=== PATIENT | male | born 1945 | race Caucasian/White ===

== ENCOUNTER 2017-12-24 14:41 | Emergency (ER) | payer MEDICARE ==
[2017-12-24 15:32] VITALS: BP 142/80
[2017-12-24] MEDS ORDERED: Ciprofloxacin TAB* 250 MG PO ONE (15:56)
--- NOTE | 2017-12-24 16:06 | UC ---
Complaint Male HPI - HPI Summary HPI Summary: 72 yo male with dysuria/urgency and frequency started hours ago (today) no f/c has had some gross hematuria hx BPH no back or abd pain no hx UTI no hx kidney stones - History of Current Complaint Chief Complaint: UCGU Stated Complaint: BLOOD IN URINE Time Seen by Provider: 12/24/17 15:42 Hx Obtained From: Patient Onset/Duration: Gradual Onset, Lasting Hours Severity Initially: Mild Severity Currently: None Pain Intensity: 0 Pain Scale Used: 0-10 Numeric Location: Penis Character: Burning Aggravating Factor(s): Voiding Alleviating Factor(s): Nothing Associated Signs And Symptoms: Positive: Hematuria, Dysuria - terminal. Negative: Diaphoresis, Back Pain, Fever, Blood in Stool, Rectal Pain, Appetite, Nausea, Vomiting(# Of Episodes =), Penile Swelling, Penile Discharge - Allergies/Home Medications Allergies/Adverse Reactions: Allergies Allergy/AdvReac Type Severity Reaction Status Date / Time No Known Allergies Allergy Verified 12/24/17 15:32 Home Medications: Home Medications Lisinopril [Prinivil TAB 20 mg] 1 tab PO DAILY 12/24/17 [History Confirmed 12/24] PMH/Surg Hx/FS Hx/Imm Hx Previously Healthy: Yes Endocrine History: Dyslipidemia Cardiovascular History: Hypertension - Surgical History Surgical History: Yes Surgery Procedure, Year, and Place: BASAL CELL NOSE- 2004, TONSIL - 4 YRS OLD, APPENDECTOMY - Family History Known Family History: Positive: Hypertension - Social History Alcohol Use: Rare Substance Use Type: None Smoking Status (MU): Never Smoked Tobacco Review of Systems Constitutional: Negative Skin: Negative Eyes: Negative ENT: Negative Respiratory: Negative Cardiovascular: Negative Gastrointestinal: Negative Genitourinary: Dysuria, Hematuria, Frequency, Urgency Motor: Negative Neurovascular: Negative Musculoskeletal: Negative Neurological: Negative Psychological: Negative Is Patient Immunocompromised?: No All Other Systems Reviewed And Are Negative: Yes Physical Exam Triage Information Reviewed: Yes Appearance: Well-Appearing, No Pain Distress, Well-Nourished Vital Signs: Initial Vital Signs Temp 97.5 F 12/24/17 15:29 Pulse 71 12/24/17 15:29 Resp 18 12/24/17 15:29 BP 142/80 12/24/17 15:29 Pulse Ox 98 12/24/17 15:29 Vital Signs Reviewed: Yes Eyes: Positive: Conjunctiva Clear ENT: Positive: Hearing grossly normal. Negative: Nasal drainage, TMs normal, Tonsillar swelling, Tonsillar exudate, Hoarse voice Neck: Positive: Supple, Nontender Respiratory: Positive: Lungs clear, Normal breath sounds, No respiratory distress Cardiovascular: Positive: RRR, No Murmur Abdomen Description: Positive: Nontender, No Organomegaly. Negative: CVA Tenderness (R), CVA Tenderness (L) Bowel Sounds: Positive: Present Musculoskeletal: Positive: ROM Intact, No Edema Neurological: Positive: Alert Psychological Exam: Normal Skin Exam: Normal Diagnostics - Laboratory Diagnostic Studies Completed/Ordered: UA +++RBC, +nitrite, tr leuks Complaint Male Course/Dx - Differential Dx/Diagnosis Provider Diagnoses: Hematuria. ? UTI vs other Discharge - Sign-Out/Discharge Documenting (check all that apply): Patient Departure - Discharge Plan Condition: Stable Disposition: HOME Prescriptions: Ciprofloxacin TAB* [Cipro 250 MG Tab*] 250 mg PO BID #14 tab Patient Education Materials: Urinary Tract Infection in Men (ED), Hematuria (ED ) Referrals: Patel Carlson MD [Medical Doctor] - As Soon As Possible (call Tuesday AM and make an appt) Additional Instructions: to ER for fever or vomiting recheck in 48 hours if not better - Billing Disposition and Condition Condition: STABLE Disposition: Home
--- NOTE | 2017-12-26 18:29 | UC ---
- Progress Note Progress Note: 12/26/2017 Pt seen on 12/24/2017 and Dx w/ possible UTI and Rx Ciprofloxacin PO. Final urine culture no growth. Please call back Pt and Advised to stop taking Ciprofloxacin PO. Thank you Clemencia Powell PA-C Discharge - Sign-Out/Discharge Documenting (check all that apply): Patient Departure - D/C home - Discharge Plan Condition: Stable Disposition: HOME Prescriptions: Ciprofloxacin TAB* [Cipro 250 MG Tab*] 250 mg PO BID #14 tab Patient Education Materials: Urinary Tract Infection in Men (ED), Hematuria (ED ) Referrals: Patel Carlson MD [Medical Doctor] - As Soon As Possible (call Tuesday AM and make an appt) Additional Instructions: to ER for fever or vomiting recheck in 48 hours if not better - Billing Disposition and Condition Condition: STABLE Disposition: Home
== END 2017-12-24 16:12 | disposition home or self-care (01) ==
LOC: UCEAST 14:41
DX: R31.9 Hematuria, unspecified (principal); R30.0 Dysuria; I10 Essential (primary) hypertension
CPT/HCPCS: 81003; 87086; 99211; A9270-GY; G0463

== ENCOUNTER 2018-12-04 08:36 | Observation (INO) | payer MEDICARE ==
--- NOTE | 2018-12-04 08:50 | ED ---
Dizziness - HPI Summary HPI Summary: This pt is a 73 y[facility] sudden onset of dizziness since 08:05 today. Pt describes dizziness as "world spinning" and constant. He reports he was unable to stand up straight at onset. Dizziness is not aggravated by changes in head position. Currently notes his dizziness is better and "can probably stand up straight now." Pt states he has been having SOB, described as labored and rapid breathing when walking outside in the heat but was better when he was around AC. Additionally reports chest pain described as pressure that is worse at night. Denies fever, chills, headache, vomiting, diarrhea, constipation, swelling in LE, palpitations, ear ache, changes in hearing. He is followed up by Dr. 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 Pt notes no seizure since [address]. Pt sees Dr[address] Carlson, urologist, for hematuria (he first had last summer). Denies hx of kidney problems. Denies allergy to IV contrast. - History Of Current Complaint Chief Complaint: EDDizziness Stated Complaint: UNABLE TO AMBULATE/DIZZINESS PER PATIENT Time Seen by Provider: 12/04/18 08:42 Hx Obtained From: Patient Onset/Duration: Suddenly Timing: Hours Severity Initially: Moderate Severity Currently: Mild Character: Room Spinning, Dizzy Aggravating Factor(s): Nothing Alleviating Factor(s): Nothing Associated Signs And Symptoms: Positive: Nausea, Chest Pain, SOB, Unsteady Gait , Other: - NEGATIVE: headache, constipation, swelling in LE, ear ache, changes in hearing. Negative: Vomiting, Diarrhea, Palpitations, Fever, Chills - Allergies/Home Medications Allergies/Adverse Reactions: Allergies Allergy/AdvReac Type Severity Reaction Status Date / Time No Known Allergies Allergy Verified 12/24/17 15:32 Home Medications: Home Medications Finasteride TAB* [Proscar TAB*] 5 mg PO DAILY 12/04/18 [History Confirmed ] Fluticasone NASAL SPRAY 50MCG* [Flonase NASAL SPRAY 50MCG*] 2 spray BOTH NARES DAILY 12/04/18 [History Confirmed 12/04/18] Phenytoin CAP(*) [Dilantin CAP(*)] 100 mg PO TID 12/04/18 [History Confirmed ] Simvastatin (NF) [Zocor (NF)] 40 mg PO DAILY 12/04/18 [History Confirmed ] Terazosin CAP* [Hytrin CAP*] 10 mg PO BEDTIME 12/04/18 [History Confirmed ] PMH/Surg Hx/FS Hx/Imm Hx Endocrine/Hematology History: Denies: Hx Diabetes, Hx Sickle Cell Disease Cardiovascular History: Reports: Hx Hypertension Denies: Hx Pacemaker/ICD, Other Cardiovascular Problems/Disorders Respiratory History: Denies: Other Respiratory Problems/Disorders GI History: Denies: Other GI Disorders History: Denies: Other Problems/Disorders Musculoskeletal History: Denies: Other Musculoskeletal History Sensory History: Reports: Hx Contacts or Glasses - GLASSES Denies: Hx Hearing Aid Opthamlomology History: Reports: Hx Contacts or Glasses - GLASSES Neurological History: Reports: Hx Seizures - 1973 WAS LAST SEIZURE Psychiatric History: Denies: Hx Panic Disorder - Cancer History Cancer Type, 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 Negative: Palpitations Positive: Shortness Of Breath Positive: Nausea. Negative: Vomiting, Diarrhea, Other - NEGATIVE: constipation Negative: Edema - in LE Neurological: Other - POSITIVE: dizziness Negative: Headache All Other Systems Reviewed And Are Negative: Yes Physical Exam - Summary Physical Exam Summary: Constitutional: Well-developed, Well-nourished, Alert. (-) Distressed Skin: Warm, Dry HENT: Normocephalic; Atraumatic Eyes: Conjunctiva normal Neck: Musculoskeletal ROM normal neck. (-) JVD, (-) Stridor, (-) Tracheal deviation Cardio: Rhythm regular, rate normal, Heart sounds normal; Intact distal pulses; The pedal pulses are 2+ and symmetric. Radial pulses are 2+ and symmetric. (-) Murmur Pulmonary/Chest wall: Effort normal. (-) Respiratory distress, (-) Wheezes, (-) Rales Abd: Soft, (-) tenderness, (-) Distension, (-) Guarding, (-) Rebound Musculoskeletal: (-) Edema Lymph: (-) Cervical adenopathy Neuro: Alert, Oriented x3, Negative [place]-Hallpike. Positive nystagmus to the left with left horizontal gaze. Psych: Mood and affect Normal Triage Information Reviewed: Yes Vital Signs On Initial Exam: Initial Vitals Temp Pulse Resp BP Pulse Ox 96.3 F 70 18 139/82 94 12/04/18 08:37 12/04/18 08:37 12/04/18 08:37 12/04/18 08:37 12/04/18 08:37 Vital Signs Reviewed: Yes - [place] Coma Scale Best Eye Response: 4 - Spontaneous Best Motor Response: 6 - Obeys Commands Best Verbal Response: 5 - Oriented Coma Scale Total: 15 Diagnostics - Vital Signs Vital Signs Temp Pulse Resp BP Pulse Ox 12/04/18 08:37 96.3 F 70 18 139/82 94 - Laboratory Result Diagrams: 12/04/18 08:59 12/04/18 08:59 Lab Statement: Any lab studies that have been ordered have been reviewed, and results considered in the medical decision making process. - Radiology Chest XR Radiology Interpretation Completed By: Radiologist Summary of Radiographic Findings: IMPRESSION: No evidence for acute disease. Dr. Olmedo has reviewed this report. - CT Brain CT CT Interpretation Completed By: Radiologist Summary of CT Findings: IMPRESSION: 1. No evidence for gross acute infarct, mass effect or hemorrhage. 2. Findings suggestive of chronic sinusitis. Dr. Olmedo has reviewed this report. Head/Neck CTA CT Interpretation Completed By: Radiologist Summary of CT Findings: IMPRESSION: 1. A partially imaged pulmonary embolism is seen at the bifurcation of the left main pulmonary artery. Further evaluation by dedicated chest CTPA is recommended. 2. No acute occlusive disease, significant stenosis or aneurysm in the head. 3. No acute occlusive disease or significant stenosis in the neck. The critical findings above were discussed with Dr. Olmedo at 10:32 AM on December 04, 2018. Chest CTA CT Interpretation Completed By: Radiologist Summary of CT Findings: IMPRESSION: 1. Extensive bilateral pulmonary emboli as above. No CT evidence of right-sided heart strain (poor sensitivity). No lung infarct. 2. Mild bibasilar difg-rs-nfi-opacification could be related to aspiration. This case was further discussed with Dr. Olmedo at 11:45 AM on December 04, 2018. - EKG 09:49 Cardiac Rate: NL - at 67 bpm EKG Rhythm: Sinus Rhythm Summary of EKG Findings: Right axis deviation. Prolonged LA. QRS is prolonged with RBBB. QTc is prolonged. National Institutes Of Health - NIH Scale Level of Consciousness: Alert/Keenly Responsive Ask Patient the Month and His/Her Age: Both Correct Ask Pt to Open/Close Eyes and Reel Repairer/Release Non-Paretic Hand: Both Correctly Best Gaze (Only Horizontal Eye Movement): Normal Visual Field Testing: No Visual Loss Facial Paresis-Pt to Smile & Close Eyes or Grimace Symmetry: Normal/Symmetrical Motor Function - Right Arm: No Drift-Holds 10 Seconds Motor Function - Left Arm: No Drift-Holds 10 Seconds Motor Function - Right Leg: No Drift-Holds 10 Seconds Motor Function - Left Leg: No Drift-Holds 10 Seconds Limb Ataxia-Must be out of Proportion to Weakness Present: Absent Sensory (Use Pinprick to Test Arms/Legs/Trunk/Face): Normal Best Language (Describe Picture, Name Items): No Aphasia Dysarthria (Read Several Words): Normal Extinction and Inattention: No Abnormality Total Score: 0 Re-Evaluation - Re-Evaluation First Eval Re-Evaluation Time: 08:56 Comment: Dr. Dhillon, neurologist, at bedside. Second Eval Re-Evaluation Time: 10:30 Comment: Pt is doing well and feeling better. Nausea has resolved. Third Eval Re-Evaluation Time: 10:45 Comment: Discussed CTA results with the pt. Dizzy Course/Dx - Course Course Of Treatment: Dr. Olmedo saw patient at 08:44. Hyun Ferguson called at 08: 52. NIH stroke scale is 0. Dr. Dhillon reports pt is not a candidate for TPA. He recommends CTA and will see patient after clinic. Assessment/Plan: Pt is a 73 y/o male presenting to [facility] s/o sudden onset of dizziness since 08:05 today. Pt describes dizziness as "world spinning" and constant. He reports he was unable to stand up straight at onset. Dizziness is not aggravated by changes in head position. NIH scale is 0. On physical exam patient has negative [place]-Hallpike and positive nystagmus to the left with left horizontal gaze. Discussed the case with Dr. Dhillon, neurologist, who came and evaluated the patient. He reports pt is not a candidate for TPA and recommends a head CTA. Lab results significant for hemoglobin of 13.6, hematocrit of 39, platelet count of 145, INR of 1.21, BUN of 28, creatinine of 1.29, phenytoin of 9.2. Chest XR is negative. Brain CT shows no evidence for gross acute infarct , mass effect or hemorrhage. Head and neck CTA shows a partially imaged pulmonary embolism is seen at the bifurcation of the left main pulmonary artery. Further evaluation by dedicated chest CTPA is recommended. In the ED course the pt was given Zofran and Lovenox. Discussed the case with Dr. Pereyra , hospitalist, who accepted the pt for admission. Dx: bilateral PE, vertigo, possible TIA. - Diagnoses Provider Diagnoses: Vertigo, Bilateral pulmonary embolism During the Visit The Following Alert/Code Occurred: Code Ferguson - at 08:52 - Provider Notifications Discussed Care Of Patient With: Irena Dhillon Time Discussed With Above Provider: 08:55 Instructed by Provider To: Other - Discussed with Dr. Dhillon, neurologist, who will come see pt in the ED. [09:17] Dr. Murphy, radiologist, reports negative CT. [10:32] Dr. Hansen, radiologist, reports CTA shows PE. [10:56] Discussed with Dr. Pereyra, hospitalist, who accepted the pt for admission. [11:45] Dr. Hansen, radiologist, reports pt has bilateral PE. Discharge - Sign-Out/Discharge Documenting (check all that apply): Patient Departure - Admit to [facility] Patient Received Moderate/Deep Sedation with Procedure: No - Discharge Plan Condition: Stable Disposition: ADMITTED TO [facility] - Billing Disposition and Condition Condition: STABLE Disposition: Admitted to [facility] - Attestation Statements Document Initiated by Alanis: Yes Documenting Staribmike: Jailene Lao Provider For Whom Alanis is Documenting (Include Credential): Mehnaz Hutton MD Scribe Attestation: Jailene Monreal scribed for Mehnaz Shaffer MD on 12/04/18 at 1840. Scribe Documentation Reviewed: Yes Provider Attestation: The documentation as recorded by the Jailene chambers accurately reflects the service I personally performed and the decisions made by me, Mehnaz Shaffer MD Status of Scribe Document: Viewed
[2018-12-04] MEDS ORDERED: Ondansetron INJ* 2 MG/ML VIAL IV ONE (08:56)
[2018-12-04 09:27] LABS: ABS Eosinophils 0.2 10^3/ul (0-0.6); ABS Lymphocytes 1.5 10^3/ul (1.0-4.8); ABS Neutrophils 4.9 10^3/ul (1.5-7.7); Eosinophil % 2.2 %; Hematocrit 39 % (42-52); Hemoglobin 13.6 g/dL (14.0-18.0); Lymphocyte % 20.3 %; Mean Corpuscular HGB Conc 35 g/dL (31-36); Mean Corpuscular Hemoglobin 32 pg (27-31); Mean Corpuscular Volume 93 fL (80-94); Mean Platelet Volume 7.7 fL (7.4-10.4); Nucleated Red Blood Cells % 0.1; Platelet Count 145 10^3/uL (150-450); Red Cell Distribution Width 13 % (10-15); White Blood Count 7.6 10^3/uL (3.5-10.8)
[2018-12-04 09:31] LABS: Albumin 4.1 g/dL (3.2-5.2); Albumin/Globulin Ratio 1.4 (1-3); BUN/Creatinine Ratio 21.7 (8-20); EGFR African American 66.2 (>60); EGFR Non-African American 54.7 (>60); Globulin 2.9 g/dL (2-4); HDL Cholesterol 77.3 mg/dL; Potassium 4.2 mmol/L (3.5-5.0); Total Bilirubin 0.5 mg/dL (0.2-1.0)
[2018-12-04 09:33] LABS: Activated Partial Thrombo Time 29.7 seconds (26.0-38.0); INR 1.21 (0.82-1.09)
[2018-12-04] MEDS ORDERED: Iohexol 350* (CONTRAST) 500 ML MDV IV ONE (09:40)
[2018-12-04 10:27] LABS: Phenytoin 9.2 mcg/mL (10-20)
[2018-12-04] MEDS ORDERED: Enoxaparin(*) 80 MG/0.8 ML SYR SUBCUT ONE (10:49)
[2018-12-04 11:09] LABS: Urine Appearance Clear; Urine Bacteria Absent (Absent); Urine Bilirubin Negative (Negative); Urine Blood 1+ (Negative); Urine Color Yellow; Urine Glucose Negative (Negative); Urine Ketones Negative (Negative); Urine Nitrite Negative (Negative); Urine Protein Negative (Negative); Urine Red Blood Cell Trace(0-2/hpf) (Absent); Urine Specific Gravity 1.036 (1.010-1.030); Urine Urobilinogen Negative (Negative); Urine White Blood Cell Absent (Absent)
[2018-12-04] MEDS ORDERED: Iodixanol* (CONTRAST) 320 MG/ML 100 ML SDV IV ONE (11:24)
--- NOTE | 2018-12-04 13:43 | CONS ---
NEUROLOGY CONSULTATION REPORT: DATE OF CONSULT: 12/04/18 CONSULTING PROVIDER: Dr. Olmedo. REASON FOR CONSULT: Sudden onset of vertigo. CHIEF COMPLAINT: Spinning sensation. HISTORY OF PRESENT ILLNESS: Mr. Kenney Humphrey is a 73-year-old right-handed man who developed sudden onset of vertigo at 8:05 a.m. The patient was last known well at 8 a.m. The patient was sitting down, when suddenly he felt a spinning sensation of the room. He was unable to stand due to the vertigo. He alerted family who contacted EMS. By the time he arrived to the ED, the vertigo resolved. Symptoms lasted approximately 15-25 minutes. He denied any symptoms of any headaches, visual disturbance, swallowing difficulty, slurred speech, or focal weakness. He has never had any similar symptoms in the past. He does have a history of tension headaches, for which he experiences infrequently. He denied any hearing loss or tinnitus. He denied any double vision. The patient stated that typically he suffers from sinus disease and allergies. He was having trouble breathing this weekend, for which he thought it was due to nasal congestion. He used his Flonase, but there was no improvement in his respiratory status. He denied any chest pain. NIH stroke scale is 0. The patient underwent a CT head without contrast that showed no acute intracranial abnormality. There was no intracranial hemorrhage. I personally reviewed this test. The test was done on 12/04/17. CTA of the head and neck were obtained and it showed no acute occlusive disease or significant stenosis in the head or neck. However, there is a partially imaged pulmonary embolism seen at the bifurcation of the left main pulmonary artery. Further evaluation by dedicated CTA of the chest was recommended. PAST MEDICAL HISTORY: Hypertension; dyslipidemia; benign prostatic hypertrophy ; allergies; epilepsy, on phenytoin. HOME MEDICATIONS: 1. Simvastatin 40 mg daily. 2. Phenytoin 100 mg 2 tablets in the morning and 1 tablet in the evening on odd days and 2 tablets in the evening on even days. 3. Terazosin 10 mg p.o. daily. 4. Claritin. The patient used to take aspirin 81 mg daily, but he stopped after reading an article of the complications of aspirin. ALLERGIES: No known drug allergies. FAMILY HISTORY: No family history of stroke or seizures. SOCIAL HISTORY: The patient is retired. He is . He denied any tobacco use. He denied any excessive alcohol use. He exercises regularly. He does have a tendency to be immobile for 3-4 hours while using the computer or watching TV. REVIEW OF SYSTEMS: A 14-point review of systems was obtained and otherwise negative except for what was mentioned in the HPI. PHYSICAL EXAM: Vital Signs: Temperature of 96.3, pulse of 85, respiratory rate of 19, oxygen saturation 97%, blood pressure of 141/88. General: Well- nourished, well-developed man in no acute distress. He uses bifocal lenses. Eyes: No conjunctivitis or scleral injury. Neck: Normal range of motion with no nuchal rigidity. No lymphadenopathy. Head: Atraumatic, normocephalic. Chest: Clear to auscultation bilaterally with no rhonchi or wheezing. Cardiac : Regular rate and rhythm with normal S1, S2. No murmurs. Extremities: No hammertoes or high arches. Skin: No lesions or lacerations. Psych: Normal affect and cheerful mood. Easy to establish rapport. Neurological Examination : Mental Status: The patient is awake, alert, oriented to person, place, time , and general circumstances. He has normal speech and comprehension. Cranial Nerves: Pupils equal, round, and reactive to light. Extraocular muscles are intact. No ptosis. No nystagmus. Normal sensation to light touch on the face bilaterally. No facial droop. HINT examination is negative on both sides. He is able to hear throughout the history process. Tongue is symmetric and midline with no atrophy or fasciculation. Motor Examination: Normal bulk and tone throughout. 5/5 strength in upper and lower extremity proximally and distally. Sensation is intact to light touch and pinprick throughout. Vibration is intact with 12 seconds on the right and 15 seconds on the left great toes. Coordination: Normal lvlrny-vo-ecan and vbwx-td-fvoj testing bilaterally. Gait: Not as fast due to the acuity of stroke. DIAGNOSTIC STUDIES/LAB DATA: WBC 7.6, hemoglobin of 13.6, hematocrit of 39, platelet count of 145. INR 1.21. Creatinine is 1.29, sodium 137, potassium 4.2. Urinalysis negative for pyuria. Cholesterol was 181, LDL cholesterol was 87, HDL 77. Phenytoin was 9.2. ASSESSMENT: Mr. Kenney Humphrey is a 73-year-old man who presented with an acute onset of transient vertigo. He was found to have a pulmonary embolism on a CTA of the neck. 1. New onset of transient vertigo - I suspect the patient may have had a transient ischemic attack involving the posterior circulation. We need to evaluate for any possible paradoxical source given that he has pulmonary embolism. Other differential diagnoses of peripheral vertigo are less likely given the transient duration of his symptoms. Also, a negative HINT examination suggests a central etiology to the vertigo. NIH stroke scale was 0. He was not a candidate for IV tPA or mechanical thrombectomy due to the fact that he did not have any deficits on examination nor did he have any large vessel intracranial occlusion. 2. Pulmonary embolism. The patient was started on anticoagulation therapy. We should assess for DVT in the lower extremities as a source of emboli. The etiology is unclear. The patient does have some history of immobility when watching TV or sitting on the computer for several hours a day. 3. History of epilepsy - the patient has not had a seizure in well over 30 years. He follows up with Dr. Enrique Barlow. His phenytoin level is slightly subtherapeutic. RECOMMENDATIONS: The patient will need admission to the hospitalist service for further evaluation. Neuro checks every 4 hours. No need to start any antiplatelet therapy given that he is going to be on anticoagulation therapy for the pulmonary embolism. Depending on the treatment duration, he will need to be on aspirin 81 mg daily following the discontinuation of the anticoagulation therapy. Please check for DVTs as the patient was complaining of right lower extremity pain in the past. No need for PT/OT/MEDICARE SALES EXECUTIVE evaluation and treatment given the patient is asymptomatic. I have ordered an MRI of the brain without contrast to evaluate for any small pontine or cerebellar infarct. I do not think the MRI will be abnormal since he is currently asymptomatic. Please order 2-D echo with bubble study to look for PFO as a possible source of paradoxical emboli. Please continue the statin therapy. Continue phenytoin for the treatment of his seizure disorder. I do not recommend increasing the phenytoin given that the patient is asymptomatic and is not having any seizures. We ordered a phenytoin level just to see if the patient may be toxic but that is not the case here. Continue supportive care. Neurology will continue to follow. [id number]/[facility] #: [id number] [facility]
[2018-12-04] MEDS: Acetaminophen TAB* 325 MG PO PRN ×2 (14:03→22:27)
[2018-12-04] MEDS: Phenytoin CAP(*) 100 MG CAP.ER PO SCH ×2 (14:03→22:06)
--- NOTE | 2018-12-04 15:16 | HP ---
CC: Dr. Lindsey; Dr. Barlow; Dr. Carlson * HISTORY AND PHYSICAL: DATE OF ADMISSION: 12/04/18 PRIMARY CARE PROVIDER: Dr. Lindsey. OTHER PROVIDERS: Dr. Barlow, Dr. Carlson. ATTENDING PHYSICIAN: Dr. Cox * (dictated by TIAGO Huffman). CHIEF COMPLAINT: "All of a sudden everything started spinning." HISTORY OF PRESENT ILLNESS: Mr. Humphrey is a 73-year-old male with a past medical history of hypertension; seizure disorder, last seizure approximately 1973; and hyperlipidemia, who presented to the ER today due to an episode of dizziness and unsteadiness of gait that started at approximately 8 a.m. The patient states that he had been awake for some time prior to this and he then became dizzy, when he walked he was unsteady on his feet stating "it was like I was drunk." He denied any focal weakness in any limb and notes that he was just unsteady and the room was spinning. He sat down on a bench and was then driven to the hospital. The patient notes that these symptoms lasted approximately 20 minutes and resolved on their own. He denies vision changes, stating that he felt like the room was spinning and that is all. He denies history of a previous event similar to this. He denies lightheadedness, presyncope, or syncope. He incidentally notes that he has intermittent numbness in the feet and frontal sinus "pressure" but denies headache. In the ER , he received a workup that was concerned that he may be experiencing a TIA. CTA of the head and neck revealed PE. CTA was then ordered and showed bilateral pulmonary embolisms. The patient does note that he has had some shortness of breath, but notes that this typically occurs when he is outside in the heat. He notes that approximately 2 weeks ago, he had right calf pain. He had associated pain with standing and walking, although he notes that the pain eased with extended walking. He states this lasted 5 to 7 days and then gradually resolved on its own. He denies recent travel, recent injury to the right lower extremity. His notes that he has had dyspnea on exertion for "months" but is unable to give an exact time. The patient denies chest pain, shortness of breath at rest. He denies abdominal pain, nausea, vomiting, diarrhea, or constipation. He denies vision changes and headache, although he does note frontal sinus pressure. He denies any focal neurological benefits. In the ER, the patient received a full workup including lab work revealing a mild normocytic anemia and an elevated creatinine that is within normal limits. Urinalysis was within normal limits. CTA of the head and neck revealed no stenosis or aneurysm in the head, no stenosis in the neck. CTA of the chest revealed bilateral PEs. Chest x-ray was within normal limits. ECG revealed normal sinus rhythm with a rate of 67. There is a right bundle-branch block noted that is unchanged from 12/17/14. In the ER, the patient received 70 subcu Lovenox and Zofran 4. Hospitalist team was asked to evaluate the patient for admission. PAST MEDICAL HISTORY: 1. Hypertension. 2. Hyperlipidemia. 3. Seizure disorder, last seizure 1973. 4. BPH. 5. Basal cell carcinoma removal from nose, squamous cell carcinoma removal from scalp. PAST SURGICAL HISTORY: Appendectomy 2013, tonsillectomy at age 3 to 4, squamous cell carcinoma of the scalp 2018, basal cell carcinoma of nose 2004. HOME MEDICATIONS: 1. Finasteride 5 mg p.o. daily. 2. Fluticasone nasal spray 2 sprays to both nares daily. 3. Ketoconazole 1 application daily. 4. Lisinopril 20 mg p.o. daily. 5. Phenytoin 100 mg p.o. t.i.d. 6. Simvastatin 40 mg p.o. daily. 7. Terazosin 10 mg p.o. at bedtime. DRUG ALLERGIES: No known drug allergies. FAMILY HISTORY: Father and paternal grandfather had heart disease. Mother had colon cancer. Brother of kidney disease. Paternal grandmother may have had diabetes mellitus. The patient denies family history of CVA or bleeding disorder. SOCIAL HISTORY: The patient does not use tobacco. He states that he tried it when he was younger, but never developed a habit. He drinks rarely, a couple of times per year. He does not use any other drugs. He is retired from [employer]. He lives at home with his and 2 daughters. In the event that he is unable to make his own medical decisions, his surrogate decision makers are his , Carly Humphrey and his daughter, Misti Simon REVIEW OF SYSTEMS: A 10-point review of systems has been performed and all the pertinent positives and negatives are in the HPI, all other systems are negative. PHYSICAL EXAMINATION GENERAL: Mr. Humphrey is a well-developed, well-nourished, overweight 73-year- old male who appears healthy. He appears his stated age. He is pleasant, cooperative, in no acute distress. He relays a good history. VITAL SIGNS: Temperature 96.3 temporal, heart rate 85, respiratory rate 19, oxygen saturation 97% on room air, blood pressure 141/88. HEENT: Normocephalic, atraumatic. Visual del rio grossly intact. PERRL. EOMI. Nonicteric sclerae. Hearing grossly intact. Oral mucous membranes are moist. There are no lesions. Tongue is midline. Pharynx is clear. RESPIRATORY: Symmetrical chest expansion without use of accessory muscles. Lungs are clear to auscultation bilaterally without rhonchi, wheezes, or rubs. CARDIOVASCULAR: Regular rate and rhythm with S1, S2 present without murmurs, rubs, clicks, or gallops. There is no JVD. ABDOMEN: Bowel sounds noted in all quadrants. The patient is soft without tenderness to palpation. There is no hepatosplenomegaly. Negative Alcaraz sign. MUSCULOSKELETAL: Full range of motion without pain or deformities. He has steady gait without impairment. EXTREMITIES: Skin is warm and smooth bilaterally without clubbing, cyanosis, or edema. Homans sign is negative. Calves nontender to palpation, no palpable cords. NEUROLOGIC: The patient is awake. He is alert and oriented x3. Cranial nerves II through XII are grossly intact. He is able to move all of his extremities with a motor strength of 5/5 in both upper and lower extremities. He has a steady gait. DIAGNOSTIC STUDIES AND LABORATORY DATA: HGB 13.6, HCT 39, platelets 145. BUN 28, creatinine 1.29. LDL 87. Chest x-ray, impression: No evidence for acute disease. Head CT, impression: No evidence for gross acute infarct, mass effect, or hemorrhage. Findings suggestive of chronic sinusitis. Head and neck CTA, impression: Partially imaged pulmonary embolism is seen at the bifurcation of the left main pulmonary artery. Further evaluation by dedicated chest CTPA as recommended. No acute occlusive disease, significant stenosis, or aneurysm of the head. No acute occlusive disease or significant stenosis in the neck. CTA chest, impression: Extensive bilateral pulmonary emboli as above. No CT evidence of right-sided heart strain (poor sensitivity). No lung infarct. Mild bibasilar tree-in-bud opacifications could be related to aspiration. ECG, rate 67, normal sinus rhythm, right bundle-branch block without change from 08/28 ECG. ASSESSMENT AND PLAN: Mr. Humphrey is a 73-year-old male with a past medical history of hypertension, seizure disorder, and hyperlipidemia, who presented to the emergency room today with complaints of vertigo and was found to have pulmonary embolism. The patient will be admitted to observation for: 1. Vertigo. The patient notes sudden onset vertigo that dissipated after approximately 20 minutes without intervention. This could simply be vertigo, but there is concern for cardioembolic transient ischemic attack, especially in light of recent pulmonary embolism noted on CTA today. The patient will be admitted for further workup of transient ischemic attack. He will be admitted observation to the tele unit. An MRI of the head has been ordered and echocardiogram will be ordered. Neuro checks ordered. 2. Pulmonary embolism. The patient has been given Lovenox 70 in the ER. He will be transitioned to apixaban starting tomorrow. He will start with 10 mg p.o. b.i.d. x7 days and then be switched to 5 mg p.o. b.i.d. 3. Elevated creatinine. The patient has an elevated creatinine noted. This appears to be his baseline. We will continue to monitor. 4. Hypertension. Continue home medication lisinopril. 5. Seizure disorder. Continue phenytoin. 6. Hyperlipidemia. Continue simvastatin. 7. Benign prostatic hypertrophy. Continue finasteride, terazosin. 8. FEN. Heart healthy diet. NPO after midnight. The patient will not be placed on fluids at this time. 9. DVT prophylaxis. According to the DVT Risk Assessment, the patient scores 3 placing him at high risk. He has been given Lovenox in the ER. He will be transitioned to p.o. Eliquis tomorrow. 10. Code status. Full code. TIME SPENT: Approximately 60 minutes was spent on this admission, greater than half of that time was spent with the patient and his family obtaining history, performing physical, and reviewing the plan of care. The case has been reviewed with my attending, Dr. Cox, who is in agreement with plan of care. TIAGO HORNER [id number]/[facility] #: [id number] [facility] CENTERNohemi
--- NOTE | 2018-12-04 17:09 | ECHO ---
*[facility]* [place] [address] Fax #: [phone] Transthoracic Echocardiogram Patient: Kenney Humphrey : 1945 Study Date: 12/04/2018 Age: 73 Gender: M HR: 74 bpm Height: 67 in /170.2 cm BSA: 1.89 m^2 Weight: 169.6 lb /77.1 kg BMI: 26.6 kg/m^2 *Campus Dean: * Kimber Carbajal RD *Referring Physician: * Vandana Lucio *Reading Physician: * Earl Molina MD Indications: TIA. History: Risk factors: Hypertension. Dyslipidemia. Epilepsy. Conclusions Summary: 1. Left ventricle: Systolic function is normal. The estimated ejection fraction is 60-65%. Wall motion is normal; there are no regional wall motion abnormalities. 2. Atrial septum: A PFO is not demonstrated by color Doppler or agitated saline contrast. 3. Mitral valve: There is mild regurgitation. 4. Aortic valve: There is mild regurgitation. 5. Tricuspid valve: There is physiologic regurgitation. 6. Pericardium, extracardiac: There is no significant pericardial effusion. Study data: Transthoracic echocardiogram. Procedure: Transthoracic echocardiography was performed. Image quality was fair. Imaging limited by off-axis parasternal window. A bubble study was performed. Images 1 and 2. Complete 2D, spectral Doppler, and color flow Doppler. Location: Bedside. Patient status: Inpatient. Patient room number: 441-1. Rhythm: Normal sinus rhythm. Findings Left ventricle: The cavity size is normal. Wall thickness is mildly increased. Systolic function is normal. The estimated ejection fraction is 60-65%. Wall motion is normal; there are no regional wall motion abnormalities. Doppler parameters are consistent with abnormal left ventricular relaxation (grade 1 diastolic dysfunction). Right ventricle: The cavity size is mildly dilated. The moderator band is in a normal position. Systolic function is normal. Systolic pressure cannot be accurately determined. Left atrium: The atrium is normal in size. Right atrium: The atrium is normal in size. Atrial septum: A PFO is not demonstrated by color Doppler or agitated saline contrast. Image 1 and 2. Mitral valve: The leaflets are mildly thickened. There is no evidence of stenosis. There is mild regurgitation. Aortic valve: The valve is trileaflet. The leaflets are mildly thickened. There is no evidence of stenosis. There is mild regurgitation. Tricuspid valve: The leaflets are normal thickness. There is no evidence of stenosis. There is physiologic regurgitation. Pulmonic valve: The leaflets are normal thickness. There is no evidence of stenosis. There is trace regurgitation. Aorta: Aortic root: The aortic root is appears normal. Ascending aorta: The ascending aorta is appears normal. Aortic arch: The aortic arch is appears normal. Pericardium: A prominent pericardial fat pad is present. There is no significant pericardial effusion. Pulmonary arteries: Not well visualized. Systolic pressure can not be accurately estimated. Systemic veins: Inferior vena cava: Not well visualized. Measurements Left ventricle Value Ref Right atrium continued Value Ref ALL, LAX (L) 3.9 cm 4.2 - 5.8 ML dim, ES, A4C 4.1 cm 2.6 - 4.4 ESD, LAX 2.6 cm 2.5 - 4.0 SI dim, ES, A4C 5.1 cm 3.4 - 5.3 FS, LAX 35 % 25 - 43 Estimated RAP 8 mm Hg --------- PW, ED, LAX (H) 1.1 cm 0.6 - 1.0 FS 35 % 25 - 43 Aortic valve Value Ref PW, ED (H) 1.1 cm 0.6 - 1.0 Mehnaz diam, ED 2.2 cm --------- E', lat mehnaz, TDI (L) 6.7 cm/sec >=10.0 Peak v, S 1.44 m/sec -- ------- E/e', lat mehnaz, 11 VTI, S 25.3 cm ----- ---- TDI Mean grad, S 4.0 mm Hg --------- E', med mehnaz, TDI (L) 5.8 cm/sec >=7.0 Peak grad, S 8.0 mm Hg -- ------- E/e', med mehnaz, 13 LVOT/AV, VTI ratio 0.91 ----- ---- TDI E', avg, TDI 6.3 cm/sec Mitral valve Value Ref E/e', avg, TDI 12 <=14 Peak E 0.75 m/sec -- ------- Peak A 0.93 m/sec --------- LVOT Value Ref Decel time 187 ms --------- Peak joselito, S 1.18 m/sec Peak grad, D 2.2 mm Hg --------- VTI, S 23.0 cm Peak E/A ratio 0.8 --------- Peak grad, S 6 mm Hg Mean grad, S 3 mm Hg Pulmonic valve Value Ref Peak v, S 0.95 m/sec --------- Ventricular septum Value Ref Peak grad, S 4.0 mm Hg --------- IVS, ED (H) 1.1 cm 0.6 - 1.0 Aortic root Value Ref Right ventricle Value Ref Root diam 3.6 cm <4.1 ALL, LAX 3.4 cm ALL minor ax, (H) 4.6 cm 1.9 - 3.5 Ascending aorta Value Ref A4C mid AAo AP diam, S 3.6 cm --------- Left atrium Value Ref Aortic arch Value Ref AP dim, ES 3.60 cm 3.00 - Arch diam 2.8 cm --------- 4.00 ML dim, A4C 4.6 cm Decending aorta Value Ref SI dim, A4C 5.2 cm Rick peak joselito 0.95 m/sec --------- Vol/bsa, ES, 1-p 27 ml/m^2 12 - 37 A4C Vol/bsa, ES, A/L 28 ml/m^2 16 - 34 Right atrium Value Ref SI dim, ES 5.1 cm 3.4 - 5.3 Legend: (L) and (H) najma values outside specified reference range. Prepared and electronically signed by Earl Molina MD 12/04/2018 17:09
[2018-12-04] MEDS ORDERED: Terazosin CAP* 5 MG PO SCH (21:00)
[2018-12-04] MEDS ORDERED: Atorvastatin* 20 MG TAB PO SCH (21:00)
[2018-12-04] MEDS ORDERED: Enoxaparin(*) 150 MG/ML 1 ML SYRINGE SUBCUT SCH (21:00)
[2018-12-04] MEDS ORDERED: Fluticasone NASAL SPRAY 50MCG* 16 gm SPRAY BTL BOTH NARES SCH (22:15)
[2018-12-05 07:23] LABS: BUN/Creatinine Ratio 22.3 (8-20); EGFR Non-African American 64.4 (>60); Potassium 4.3 mmol/L (3.5-5.0)
[2018-12-05] MEDS: Phenytoin CAP(*) 100 MG CAP.ER PO SCH ×2 (07:51→13:56)
[2018-12-05] MEDS ORDERED: Apixaban* 5 MG TAB PO SCH (09:00)
[2018-12-05] MEDS ORDERED: Finasteride TAB* 5 MG PO SCH (09:00)
[2018-12-05] MEDS ORDERED: Lisinopril TAB* 10 MG PO SCH (09:00)
[2018-12-05 14:01] VITALS: BP 132/71
--- NOTE | 2018-12-05 17:55 | PN ---
Subjective Date of Service: 12/05/18 Length of Stay: 1 Days Neurology is following for the transient episode of vertigo. Interval History: He had no recurrence of vertigo. He was found to also have a DVT in addition to the PE. He was started on enoxaprin. Tolerating the injections without any side effects. He is getting ready to go home. Review of Systems: Denied any headaches, visual disturbance, speech abnormality, or swallowing difficulty. Denied CP, SOB, or palpitations. Objective Vital Signs 12/04/18 12/04/18 12/04/18 19:18 20:00 23:36 Temperature 98.6 F 98.4 F Pulse Rate 73 74 Respiratory 16 18 18 Rate Blood Pressure 118/67 93/48 (mmHg) O2 Sat by Pulse 95 94 Oximetry 12/05/18 12/05/18 12/05/18 03:33 07:15 07:54 Temperature 99 F 97.8 F Pulse Rate 73 66 Respiratory 18 19 18 Rate Blood Pressure 100/60 132/71 (mmHg) O2 Sat by Pulse 97 97 Oximetry Intake and Output Last 24 Hours 12/03/18 12/04/18 12/05/18 12/06/18 06:59 06:59 06:59 06:59 Intake Total 360 1080 Output Total 0 0 Balance 360 1080 Weight 173 lb 12.8 oz Intake: Oral 360 1080 Output: Urine 0 0 Oxygen Devices in Use Now: None Neurology Exam: General: Well nourished, well developed, and in no acute distress HEENT: Normocephelic/atraumatic, sclera anicteric, mucous membranes moist Extremities: No clubbing, cyanosis, or edema Neurological Findings: Awake, alert, and oriented to person, place, and time. Speech: fluent without dysarthria, repetition intact Cranial Nerve: PERRL, EOM intact, VFF, Motor: s/s throughout, proximal and distal extremities x4 tone/bulk normal Sensation: intact to LT/PP bilaterally upper and lower extremities Finger to nose, rapid alternating movements intact without tremor, no dysdiadochokinesia Gait: intact with good arm swing and stride Result Diagrams: 12/04/18 08:59 12/05/18 05:56 Diagnostic Imaging: BRAIN MRI without jrbgouyt01/22/2019: no acute intracranial abnormality. Mild cerebral volume loss. air fluid level in the right maxillary sinus is present. TTE 12/04/2018: EF 60-65%. PFO is not demonstrated. CTA head and neck on 12/04/2018: no LVO or hemodynamically significant carotid stenosis. Assessment/Plan 1. Transient episode of vertigo: may have been associated symptoms related to the pulmonary embolism. Given that he does not have a PFO on TTE (although a BOYD would be a more sensitive test), I am not convinced that this is a posterior circulatory TIA. The medical management will not entirely change given that he will need to be on anticoagulation therapy. Continue aspirin 81 mg once completing the recommended treatment with Lovenox. If he continues to have symptoms, a BOYD to look for a PFO causing paradoxical emboli is recommended. Continue statin therapy. He will follow-up with Dr. Barlow in the near future. 2. Hx of epilepsy- continue phenytoin. We agreed to not change his dose in spite of the low phenytoin level since he has not had a seizure in decades.
--- NOTE | 2018-12-05 22:02 | DS ---
CC: Dr. Lindsey; Dr. Barlow; Dr. Carlson * DISCHARGE SUMMARY: DATE OF ADMISSION: 12/04/18 DATE OF DISCHARGE: 12/05/18 PRIMARY CARE PROVIDER: Dr. Lindsey. OTHER PROVIDERS: Dr. Barlow, Dr. Carlson. ATTENDING PHYSICIAN: Dr. Cox * (dictated by TIAGO Huffman). PRIMARY DIAGNOSES: 1. Vertigo, possible transient ischemic attack. 2. Bilateral pulmonary embolism. 3. Right leg deep vein thrombosis. SECONDARY DIAGNOSES: 1. Hypertension. 2. Hyperlipidemia. 3. Seizure disorder, last seizure 1973. 4. Benign prostatic hypertrophy. 5. Basal cell carcinoma removal from nose. 6. Squamous cell carcinoma removal from scalp. STUDIES WHILE IN THE HOSPITAL: Head CTA, impression: A partially imaged pulmonary embolism is seen at the bifurcation of left main pulmonary artery, no acute occlusive disease, significant stenosis or aneurysm in the head, no acute occlusive disease or significant stenosis in the neck. Brain CT: No evidence for gross acute infarct, mass effect, or hemorrhage. Findings suggestive of chronic sinusitis. Brain MRI, no acute intracranial abnormality, mild cerebral volume loss, similar polypoid mucosal thickening in the bilateral maxillary and right sphenoid sinuses, an air fluid level in the right maxillary sinus is present in the absence of sinonasal irrigation. This should be correlated for acute sinusitis. Chest CTA, impression: Extensive bilateral pulmonary emboli as noted. No CT evidence of right heart strain (poor sensitivity). No lung infarct. Mild bibasilar tree-in-bud opacifications could be related to aspiration. Transthoracic echocardiogram, summary: Left ventricular systolic function normal, EF 60% to 65%, wall motion normal, no regional wall motion abnormalities, PFO not demonstrated, mild mitral regurg, mild aortic regurg, physiologic tricuspid regurg, no significant pericardial effusion. Venous Doppler ultrasound, right lower extremity, impression: Deep vein thrombosis involving the right femoral vein distal to the bifurcation extending to the popliteal vein. Posterior, tibial, and peroneal veins are patent. DISCHARGE MEDICATIONS: Home medications: 1. Finasteride 5 mg p.o. daily. 2. Fluticasone 2 sprays both nares daily. 3. Ketoconazole 2% cream, 1 application daily. 4. Lisinopril 20 mg 1 tab p.o. daily. 5. Phenytoin 100 mg p.o. t.i.d. 6. Simvastatin 40 mg p.o. daily. 7. Terazosin 10 mg p.o. at bedtime. New home medication: 1. Enoxaparin 120 mg subcu q.24 hours. HISTORY OF PRESENT ILLNESS/HOSPITAL COURSE: Mr. Humphrey is a 73-year-old male with a past medical history of hypertension, seizure disorder, hyperlipidemia, who presented to the ER with an episode of dizziness and unsteadiness of gait starting on 12/04/18 at approximately 8 a.m. and lasting approximately 20 minutes. For full and complete details, please see history and physical dictated by TIAGO Huffman. In the ER, the patient received a workup, which included head CT, head and neck CTA, and brain MRI. Head and neck CTA revealed partial imaging of pulmonary embolism. The patient was further evaluated with a CTA of the chest, which revealed bilateral pulmonary embolisms. Venous Doppler of the right lower extremity due to history of right calf pain in the weeks prior was obtained and revealed right lower extremity DVT. Transthoracic echocardiogram revealed no PFO. Due to concern for possible cardioembolic TIA, echo was obtained and revealed no PFO. Head and neck CTA and brain MRI revealed no CVA. The patient's symptoms lasted approximately 20 minutes and resolved on their own prior to arrival at the hospital. On the day of discharge, he reports that his symptoms have not returned. He reports a steady gait. He denies chest pain, shortness of breath, fever, chills, cough, pleuritic chest pain. He denies diaphoresis, vision changes, headache. He denies gait disturbance. He denies weakness in the extremities, both general and focal. He denies abdominal pain, nausea, vomiting, diarrhea, constipation. He denies numbness and tingling in the extremities. Mr. Humphrey was started on Lovenox for PE treatment. Lovenox teaching was given prior to discharge. He will be continued on this medication for 3 to 6 months with followup to primary care provider for further recommendation. Neurology recommended change to aspirin 81 mg daily after discontinuation of anticoagulation for prophylaxis of possible TIA. The patient is comfortable with these instructions. He is stable for discharge. Mr. Humphrey is stable for discharge. Vital Signs: temperature 97.8 oral, heart rate 66, respiratory rate 18, oxygen saturation 97 % on room air, blood pressure 132/71. REVIEW OF SYSTEMS: A 10-point review of systems has been performed. All the pertinent positives and negatives are in the HPI. All other systems are negative. PHYSICAL EXAM: General: Mr. Humphrey is a well-developed, well-nourished, over weight, 73-year-old white male who is sitting up in bed. He is pleasant and cooperative. He appears to be in no acute distress. HEENT: Visual del rio grossly intact. PERRL. EOMI. Nonicteric sclerae. Hearing is grossly intact. The oral mucous membranes are moist. There are no lesions. The pharynx is clear. The tongue is at midline. Cardiovascular: Regular rate and rhythm with S1, S2 present without murmurs, rubs, clicks, or gallops. There is no JVD. Radial and pedal pulses are palpable. There is no peripheral edema. Respiratory: Symmetrical chest expansion without use of accessory muscles. Lungs are clear to auscultation bilaterally without rhonchi, wheezes, or rubs. There is no digital clubbing or cyanosis. Abdomen: Flat bowel sounds noted in all quadrants. Abdomen is soft and nontender to palpation. Musculoskeletal: Full range of motion without pain or deformities. Steady gait. There is no impairment. Neuro: The patient is awake. He is alert and oriented x3. Cranial nerves are grossly intact without focal neurological deficits. He is able to move all of his extremities. He has a motor strength of 5/5 in upper and lower extremities bilaterally. There is no gait impairment. DISCHARGE PLAN: Mr. Humphrey will be discharged to home. ACTIVITY: As tolerated. DIET: Heart healthy. MEDICATIONS: Lovenox 120 subcu q.24 hours starting at 2100. This medication will be continued for approximately 3 to 6 months. EDUCATION: 1. Please follow up with primary care provider for further refills, management , and instructions. 2. Please start taking aspirin 81 mg p.o. daily after Lovenox is discontinued. 3. Please return to the ER or nearest hospital if you experience any worsening of symptoms. Return for shortness of breath, chest discomfort, palpitations, dizziness, lightheadedness, loss of consciousness, high fever, chills, night sweats, or any other worrisome signs or symptoms. This is a summarized report of a complex medical history and hospital stay. For further details, please see the entire medical record. TIME SPENT: Approximately 45 minutes were spent on this discharge, greater than half that time was spent [id number] with the patient and his discussing discharge plans and instructions. TIAGO HORNER [id number]/[facility] #: [id number] [facility] CENTERNohemi
== END 2018-12-05 15:30 | disposition home or self-care (01) ==
LOC: ED 08:36 → MEDTELE 12:28
PROVIDERS: ADMIT Internal Medicine; ATTEND Internal Medicine
DX: R42 Dizziness and giddiness (principal); I26.99 Other pulmonary embolism without acute cor pulmonale; I82.411 Acute embolism and thrombosis of right femoral vein; I10 Essential (primary) hypertension; E78.5 Hyperlipidemia, unspecified; G40.909 Epilepsy, unspecified, not intractable, without status epilepticus; N40.0 Benign prostatic hyperplasia without lower urinary tract symptoms; Z85.828 Personal history of other malignant neoplasm of skin; Z79.899 Other long term (current) drug therapy; R06.02 Shortness of breath; Z91.048 Other nonmedicinal substance allergy status
CPT/HCPCS: 36415; 70450; 70496; 70498; 70551; 71045; 71275; 80048; 80053; 80061; 80185; 81003; 81015; 83036; 83605; 84484; 85025; 85610; 85730; 93005; 93306; 96372; 96374; 99285; A9270-GY; G0378; J1650; J2405; Q9967